=== PATIENT | female | born 1980 | race Two or more races ===

== ENCOUNTER 2018-01-20 14:36 | Emergency (ER) | payer MEDICARE, MEDICAID ==
[~2018-01-20] VITALS: Ht 154.9 cm; Wt 82.0 kg
[2018-01-20] MEDS ORDERED: LORAZEPAM 1MG TABLET PO ONE (19:45)
[2018-01-20 19:55] LABS: BASOPHILS % 0.3 % (0.0-2.0); EOSINOPHILS % 1.5 % (0.0-5.0); HEMATOCRIT. 40.5 % (36.0-48.0); HEMOGLOBIN. 13.8 g/dL (12.0-16.0); LYMPHOCYTES % 11.7 % (20.0-50.0); MEAN CORPUSCULAR HEMOGLOBIN 32.6 pg (28.0-32.0); MEAN CORPUSCULAR VOLUME 95.1 fL (81.0-99.0); MONOCYTES % 5.9 % (2.0-8.0); NEUTROPHILS % 80.6 % (40.0-76.0); PLATELET 207 x1000/uL (130-400); RED BLOOD CELL COUNT 4.25 mill/uL (4.2-5.4); RED CELL DISTRIBUTION WIDTH 15.1 % (11.6-14.6)
[2018-01-20 19:57] LABS: CHLORIDE 99 mEq/L (98-107)
[2018-01-20 22:07] LABS: CLARITY URINE CLEAR (CLEAR); COLOR URINE YELLOW (YELLOW); KETONES URINE NEGATIVE (NEGATIVE); LEUKOCYTE ESTERASE URINE 2+ (NEGATIVE); NITRITE URINE NEGATIVE (NEGATIVE); OCCULT BLOOD URINE 3+ (NEGATIVE); PH URINE >=9.0 (4.5-8.0); PROTEIN URINE 3+ (NEGATIVE); SPECIFIC GRAVITY URINE 1.011 (1.005-1.030)
[2018-01-20] MEDS ORDERED: IOHEXOL-350 100 ML BOTTLE ONE (23:09)
[2018-01-21 00:14] VITALS: BP 158/82
== END 2018-01-21 00:17 | disposition home or self-care (01) ==
LOC: ER 14:36
DX: N39.0 Urinary tract infection, site not specified (principal); F41.9 Anxiety disorder, unspecified
CPT/HCPCS: 36415; 71045; 71275; 80048; 81003; 81025; 84484; 85025; 85379; 87077; 87086; 87186; 93005; 99285; Q9967; A4315

== ENCOUNTER 2018-11-22 19:31 | Inpatient (IN) | payer MEDICARE, MEDICAID ==
[~2018-11-22] VITALS: Ht 165.1 cm; Wt 108.9 kg
[2018-11-22] MEDS ORDERED: SODIUM CHLORIDE 0.9% 1,000 ML IV ONE (20:03)
[2018-11-22] MEDS ORDERED: VANCOMYCIN 1 G PREMIX 200 ML IV SCH (20:15)
[2018-11-22] MEDS ORDERED: PIPERACILLIN/TAZ 3.375G PREMIX 50 ML IV ONE (20:15)
[2018-11-22 23:21] LABS: CHLORIDE 99 mEq/L (98-107); HEMATOCRIT. 27.9 % (36.0-48.0); HEMOGLOBIN. 8.4 g/dL (12.0-16.0); MEAN CORPUSCULAR HEMOGLOBIN 25.3 pg (28.0-32.0); MEAN CORPUSCULAR VOLUME 84.3 fL (81.0-99.0); PLATELET 795 x1000/uL (130-400); RED CELL DISTRIBUTION WIDTH 23.2 % (11.6-14.6)
[2018-11-22] MEDS ORDERED: ALBUTEROL (0.083%) 2.5MG/3ML NEB HHN STA (23:54)
[2018-11-23] MEDS ORDERED: DEXTROSE 50% WATER 50ML SYRINGE IV ONE
[2018-11-23] MEDS ORDERED: INSULIN REGULAR (HUMULIN R) 300UNITS/3ML IV ONE
[2018-11-23 00:31] LABS: NUCLEATED RED BLOOD CELLS 1 /100 WBC
[2018-11-23 00:32] LABS: PLATELET ESTIMATE MARKEDLY INCREASED
[2018-11-23 01:09] LABS: INR 1.3; PROTHROMBIN TIME 13.3 sec (9.6-11.0)
[2018-11-23] MEDS ORDERED: DEXT 5%/0.9% NACL 1,000 ML IV SCH (02:45)
[2018-11-23] MEDS ORDERED: SODIUM CHLORIDE 0.9% 10ML VIAL ONE (03:00)
[2018-11-23] MEDS ORDERED: VECURONIUM BROMIDE 10 MG/VIAL IV ONE ×2 (03:00→04:00)
[2018-11-23] MEDS ORDERED: ONDANSETRON HCL 4MG/2ML INJ IV PRN (03:15)
[2018-11-23] MEDS ORDERED: MORPHINE SULFATE 4 MG/ML CPJ (NOT FOR IM USE) IV PRN (03:15)
[2018-11-23] MEDS ORDERED: NOREPINEPHRINE 4 MG in DEXT 5% WATER 250 ML IV STA (03:27)
[2018-11-23] MEDS ORDERED: SODIUM CHLORIDE 0.9% 1000ML BAG (SEPSIS BOLUS) IV ONE (03:30)
[2018-11-23] MEDS ORDERED: EPINEPHRINE 0.1MG/ML (1:10,000) 10ML SYR ONE (03:43)
[2018-11-23] MEDS ORDERED: SODIUM BICARBONATE 8.4% 1 MEQ/ML 50ML SYR IV ONE ×2 (03:44)
[2018-11-23] MEDS ORDERED: NOREPINEPHRINE 4MG/250ML PMX 250 ML IV PRN (03:45)
[2018-11-23 03:53] LABS: BASOPHILS % 0.3 % (0.0-2.0); EOSINOPHILS % 0.1 % (0.0-5.0); HEMATOCRIT. 24.3 % (36.0-48.0); LYMPHOCYTES % 11.5 % (20.0-50.0); MEAN CORPUSCULAR HEMOGLOBIN 25.5 pg (28.0-32.0); MEAN CORPUSCULAR VOLUME 89.5 fL (81.0-99.0); MONOCYTES % 1.1 % (2.0-8.0); PLATELET 797 x1000/uL (130-400); RED BLOOD CELL COUNT 2.72 mill/uL (4.2-5.4); RED CELL DISTRIBUTION WIDTH 23.4 % (11.6-14.6)
[2018-11-23 03:54] LABS: HCG SCREEN NEGATIVE
[2018-11-23 03:58] LABS: HEMOGLOBIN. 6.9 g/dL (12.0-16.0)
[2018-11-23 04:03] LABS: BG FRACTION INSPIRED OXYGEN 100; BG HCO3 ACT 21.6 mmol/L (22.0-26.0); BG PCO2 59.7 mmHg (35.0-45.0); BG PH 7.177 (7.350-7.450); BG PO2 215.9 mmHg (75.0-100.0); BG SAMPLE SITE LEFT RADIAL; BG TIDAL VOLUME(mL) 400 mL; BG TOTAL HEMOGLOBIN < 4.5 g/dL (12.0-18.0); BG VENT MODE VENT - A/C; BG VENT RATE 12 set
[2018-11-23 05:21] LABS: PLATELET ESTIMATE MARKEDLY INCREASED
[2018-11-23] MEDS ORDERED: NOREPINEPHRINE 16 MG in DEXT 5% WATER 484 ML IV PRN (05:30)
[2018-11-23] MEDS ORDERED: SODIUM CHLORIDE 0.9% 500 ML IV NR (05:30)
[2018-11-23] MEDS ORDERED: PHENYLEPHRINE 40 MG in DEXT 5% WATER 496 ML IV PRN (05:30)
[2018-11-23] MEDS ORDERED: PHENYLEPHRINE 80 MG in DEXT 5% WATER 492 ML IV PRN (05:40)
[2018-11-23] MEDS ORDERED: DOPAMINE 800MG PREMIX (DOUBLE) 250 ML IV ONE (05:56)
[2018-11-23] MEDS ORDERED: PIPERACILLIN/TAZ 3.375G PREMIX 50 ML IV SCH (06:00)
[2018-11-23] MEDS ORDERED: DOPAMINE 800MG PREMIX (DOUBLE) 250 ML IV PRN (06:00)
[2018-11-23 06:59] VITALS: BP 50/25
[2018-11-23] MEDS ORDERED: VANCOMYCIN 1 G PREMIX 200 ML IV NR (08:00)
[2018-11-23] MEDS ORDERED: PANTOPRAZOLE SODIUM 40 MG/VIAL IV SCH (09:00)
== END 2018-11-23 07:25 | disposition expired | DRG 871 ==
LOC: ER 19:31 → MICUSO 23:28 → EDBEDREQTM 23:33 → EDBEDREQ 23:33 → EDBEDREQSVC 11-23 03:29 → EDBEDREQTM 11-23 03:29 → EDBEDREQDT 11-23 03:29 → ENRESERV 11-23 03:58
PROVIDERS: ADMIT Internal Medicine; ATTEND Internal Medicine
PROC: 0BH17EZ Insertion of Endotracheal Airway into Trachea, Via Natural or Artificial Opening (ICD-10-PCS; principal; 2018-11-23)
PROC: 5A12012 Performance of Cardiac Output, Single, Manual (ICD-10-PCS; 2018-11-23)
PROC: 05H633Z Insertion of Infusion Device into Left Subclavian Vein, Percutaneous Approach (ICD-10-PCS; 2018-11-23)
PROC: 5A1935Z Respiratory Ventilation, Less than 24 Consecutive Hours (ICD-10-PCS; 2018-11-23)
DX: A41.9 Sepsis, unspecified organism (principal); R65.21 Severe sepsis with septic shock; I10 Essential (primary) hypertension; I46.9 Cardiac arrest, cause unspecified; Q05.9 Spina bifida, unspecified; Z87.81 Personal history of (healed) traumatic fracture; L89.899 Pressure ulcer of other site, unspecified stage; L08.9 Local infection of the skin and subcutaneous tissue, unspecified
CPT/HCPCS: 31500; 36415; 36556; 36600; 71045; 80048; 82375; 82805; 82962; 83605; 84145; 84484; 84703; 86850; 86900; 86920; 87077; 87186; 92950; 93005; 96365; 96366; 96367; 96375; 96376; 99291; J1265; J1815; J2370; J2543; J3370; J3490; J7030; J7042; J7060; J7611; A4315